=== PATIENT | female | born 2000 | race American Indian/Alaskan Native ===

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

== ENCOUNTER 2018-02-27 13:37 | Emergency (ER) | payer MEDICAID, OTHER ==
[2018-02-27 13:59] VITALS: BP 127/82
--- NOTE | 2018-02-27 14:05 | EDM.PDOC ---
ED HPI GENERAL MEDICAL PROBLEM - General Chief Complaint: ENT Problem Stated Complaint: FOOD STUCK IN THROAT. [phone] Time Seen by Provider: 02/27/18 14:05 Source of Information: Reports: Patient, RN, RN Notes Reviewed History Limitations: Reports: No Limitations - History of Present Illness INITIAL COMMENTS - FREE TEXT/NARRATIVE: Pt c/o sore throat, but states she isn't sure if she is sick, or if it from food that got stuck while eating dinner last evening. Admits to mild fever/ chills but hasn't measured her temp. She denies cough, N/V, abdominal pain or other Sx's. Pt states she is 17+ wks with twin. She denies any Sx's or concerns with the in relation to this visit. 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: Psychiatric History: Reports: Depression, Suicide Attempt Hematologic History: Reports: Anemia Dermatologic History: Reports: Other (See Below) Other Dermatologic History: tatoos - Infectious Disease History Infectious Disease History: Reports: Chicken Pox - Past Surgical History HEENT Surgical History: Reports: Adenoidectomy, Tonsillectomy GI Surgical History: Reports: Cholecystectomy Social & Family History - Family History Family Medical History: Noncontributory - Caffeine Use Caffeine Use: Reports: Soda, Tea - Living Situation & Occupation Living situation: Reports: with Family Occupation: Student ED ROS ENT - Review of Systems Review Of Systems: ROS reveals no pertinent complaints other than HPI. ED EXAM, ENT - Physical Exam Exam: See Below Exam Limited By: No Limitations General Appearance: Alert, WD/WN, No Apparent Distress Eye Exam: Bilateral Eye: Normal Inspection Ears: Normal External Exam, Normal Canal, Hearing Grossly Normal, Normal TMs Nose: Normal Inspection, Normal Mucousa, No Blood Mouth/Throat: Normal Gums, Normal Lips, Normal Teeth, Pharyngeal Erythema (mild) Head: Atraumatic, Normocephalic Neck: Normal Inspection, Supple, Non-Tender, Full Range of Motion. No: Lymphadenopathy (L), Lymphadenopathy (R) Respiratory/Chest: No Respiratory Distress, Lungs Clear, Normal Breath Sounds, No Accessory Muscle Use, Chest Non-Tender Cardiovascular: Normal Peripheral Pulses, Regular Rate, Rhythm, No Edema, No Gallop, No JVD, No Murmur, No Rub GI/Abdominal: Normal Bowel Sounds, Soft, Non-Tender, No Distention, Other ( benign gravid abdomen) (Female) Exam: Deferred Rectal (Female) Exam: Deferred Back: Normal Inspection. No: CVA Tenderness (L), CVA Tenderness (R) Extremities: Normal Inspection, Normal Range of Motion, Non-Tender, No Pedal Edema, Normal Capillary Refill Neurological: Alert, Oriented, CN II-XII Intact, Normal Cognition, Normal Gait, No Motor/Sensory Deficits Psychiatric: Normal Affect, Normal Mood Skin: Warm, Dry, Intact, Normal Color, No Rash Course - Vital Signs Last Recorded V/S: Last Vital Signs Temp 36.6 C 02/27/18 13:57 Pulse 78 02/27/18 13:57 Resp 16 02/27/18 13:57 BP 127/82 02/27/18 13:57 Pulse Ox 96 02/27/18 13:57 heart tones: 183 on twin 1, and 186 on twin 2 by doppler per RN report. - Orders/Labs/Meds Orders: Active Orders 24 hr Category Date Time Status Heart Tones [RC] ASDIRECTED Care 02/27/18 14:26 Active Labs: Laboratory Tests 02/27/18 02/27/18 Range/Units 14:39 14:39 WBC 13.9 H (5.0-10.0) 10^3/uL RBC 4.33 (4.2-5.4) 10^6/uL Hgb 12.9 D (12.0-16.0) g/dL Hct 37.9 (37.0-47.0) % MCV 87.5 (80-100) fL MCH 29.8 (27.0-34.0) pg MCHC 34.0 (33.0-35.0) g/dL Plt Count 321 D (150-450) 10^3/uL Neut % (Auto) 78.6 H (42.2-75.2) % Lymph % (Auto) 14.8 L (20.5-50.1) % [place] % (Auto) 4.8 (2-8) % Eos % (Auto) 1.6 (1.0-3.0) % Baso % (Auto) 0.2 (0.0-1.0) % Sodium 133 L (135-145) mmol/L Potassium 3.8 (3.6-5.0) mmol/L Chloride 103 (101-111) mmol/L Carbon Dioxide 21.0 (21.0-31.0) mmol/L Anion Gap 12.8 BUN 7 (7-18) mg/dL Creatinine 0.5 L (0.6-1.3) mg/dL Est Cr Clr Drug Dosing 182.56 mL/min Estimated GFR (MDRD) > 60 BUN/Creatinine Ratio 14.00 Glucose 75 (74-105) mg/dL Calcium 9.1 (8.4-10.2) mg/dl Total Bilirubin 0.5 (0.2-1.0) mg/dL AST 17 (10-42) IU/L ALT 18 (10-60) IU/L Alkaline Phosphatase 100 (42-121) IU/L Total Protein 6.9 (6.7-8.2) g/dl Albumin 3.1 L (3.2-5.5) g/dl Globulin 3.8 Albumin/Globulin Ratio 0.82 Amylase 42 (28-100) U/L Lipase 20 L (22-51) U/L - Re-Assessments/Exams Free Text/Narrative Re-Assessment/Exam: I consulted Dr. Jaylen Quijano regarding the pt's case, and she agrees with the evaluation and tx thus far, and will ensure the pt can be seen in clinic in the next 1 to 2 days for recheck. Departure - Departure Time of Disposition: 15:39 Disposition: Home, Self-Care 01 Condition: Good Clinical Impression: Esophagitis Esophagus, foreign body Qualifiers: Encounter type: initial encounter Qualified Code(s): T18.108A - Unspecified foreign body in esophagus causing other injury, initial encounter - Discharge Information Instructions: Esophagitis Referrals: Arleth Mata MD [Primary Care Provider] - Forms: ED Department Discharge Additional Instructions: Rx: Ranitidine 150mg Avoid soda/carbonated beverages, spicy foods, and fried/greasy foods. Follow up in clinic with Dr. Mata for recheck. - My Orders Last 24 Hours: My Active Orders 02/27/18 14:26 Heart Tones [RC] ASDIRECTED - Assessment/Plan Last 24 Hours: My Active Orders 02/27/18 14:26 Heart Tones [RC] ASDIRECTED
[2018-02-27 15:15] LABS: CHLORIDE,CL 103 mmol/L (101-111); SODIUM,NA 133 mmol/L (135-145)
== END 2018-02-27 15:51 | disposition home or self-care (01) ==
LOC: DL.ED 13:37
DX: O9A.212 Injury, poisoning and certain other consequences of external causes complicating pregnancy, second trimester (principal); T18.108A Unspecified foreign body in esophagus causing other injury, initial encounter; O99.612 Diseases of the digestive system complicating pregnancy, second trimester; K20.9 Esophagitis, unspecified; O30.002 Twin pregnancy, unspecified number of placenta and unspecified number of amniotic sacs, second trimester; Z3A.17 17 weeks gestation of pregnancy
CPT/HCPCS: 36415; 80053; 82150; 83690; 85025; 87081; 87430; 99283

== ENCOUNTER 2018-06-07 15:33 | Observation (INO) | payer MEDICAID ==
[2018-06-07] MEDS ORDERED: Betamethasone Acetate/Betamethasone Sod Phosphate 30 MG/5 ML MDV IM ONE (15:57)
[2018-06-07] MEDS: Acetaminophen 325 MG Tab PO PRN (17:34)
[2018-06-08] MEDS: Acetaminophen 325 MG Tab PO PRN ×2 (03:10→11:27)
[2018-06-08] MEDS: Calcium Carbonate 500 MG Tab.Chew PO PRN ×2 (03:40→11:16)
--- NOTE | 2018-06-08 13:22 | PCM.LDHP ---
L&D History of Present Illness - General Date of Service: 06/07/18 Admit Problem/Dx: Patient Status Order with Admit Dx/Problem 06/07/18 16:00 Admission Status [Patient Status] [ADT] Routine Admission Diagnosis/Problem Admission Diagnosis/Problem Twin Source of Information: Patient History Limitations: Reports: No Limitations - History of Present Illness Introduction:: 18-year-old at 32w0d transferred to L&D for monitoring. Patient is currently with dichorionic diamniotic twins. She has been following with [facility] for discordant growth. Last ultrasound of the twins 15% difference. Patient has a history of gestational hypertension with her last . She was seen in labor and delivery 5 days ago for lower uterine pain. That time, her blood pressures were normal. She was diagnosed with a urinary tract infection and was treated. Patient states that since that time, she has not been feeling well. She has a headache most days of the week and has a lot of lower pelvic, pubic, and vaginal pain. She denies a contractions. Babies are moving. On arrival at the clinic, patient's blood pressures were initially 138/98 and 140/98. After patient had sat for about 15 minutes, her blood pressure was 130/ 88. Given her history of gestational hypertension, -induced hypertension labs were ordered. Results were as follows: Hemoglobin 10.8 Platelets 311 AST 12 ALT 15 BUN 6 Creatinine 0.8 LDH 163 Uric acid 4.3 PCR 0.2 Pain Score: 7 - Related Data Allergies/Adverse Reactions: Allergies Allergy/AdvReac Type Severity Reaction Status Date / Time No Known Allergies Allergy Verified 06/01/18 23:44 Home Medications: Home Meds Acetaminophen [Tylenol] 650 mg PO Q6H PRN #0 tablet 12/26/16 [Rx] Vit37/Iron/Folic Acid [Prenata] 1 tab PO DAILY 02/27/18 [History] Past Medical History - Past Health History Medical/Surgical History: Denies Medical/Surgical History HEENT History: Reports: Impaired Vision Cardiovascular History: Reports: None Respiratory History: Reports: None Other Respiratory History: hx influenza a Gastrointestinal History: Reports: None Genitourinary History: Reports: None 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: , Other (See Below) Other OB/BYN History: current twin gestation Musculoskeletal History: Reports: None Neurological History: Reports: None Psychiatric History: Reports: Depression, Suicide Attempt Endocrine/Metabolic History: Reports: Diabetes, Gestational Hematologic History: Reports: Anemia Immunologic History: Reports: None Oncologic (Cancer) History: Reports: None Dermatologic History: Reports: None, Other (See Below) Other Dermatologic History: tattoos, 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 - Infectious Disease History Infectious Disease History: Reports: Influenza - Past Surgical History Head Surgeries/Procedures: Reports: None HEENT Surgical History: Reports: Adenoidectomy, Tonsillectomy GI Surgical History: Reports: Cholecystectomy Female Surgical History: Reports: Section Social & Family History - Family History Family Medical History: Noncontributory - Tobacco Use Smoking Status *Q: Current Every Day Smoker Years of Tobacco use: 5 Packs/Tins Daily: 0.5 Used Tobacco, but Quit: No - Caffeine Use Caffeine Use: Reports: Soda - Recreational Drug Use Recreational Drug Use: No - Living Situation & Occupation Living situation: Reports: with Family Occupation: Student H&P Review of Systems - Review of Systems: Review Of Systems: See Below General: Reports: Fatigue HEENT: Reports: Headaches Pulmonary: Reports: No Symptoms Cardiovascular: Reports: No Symptoms Gastrointestinal: Reports: Abdominal Pain Genitourinary: Reports: Other (Pelvic pain) Musculoskeletal: Reports: No Symptoms Skin: Reports: No Symptoms L&D Exam - Exam Exam: See Below - Vital Signs Vital Signs: Last Vital Signs Temp 36.8 C 06/08/18 12:00 Pulse 104 H 06/08/18 12:00 Resp 16 06/08/18 12:00 BP 110/74 06/08/18 12:00 Pulse Ox 99 06/08/18 12:00 Weight: 109.769 kg - OB Specific Contraction Duration (sec): 10-40 Contraction Frequency (min): 0 Contraction Intensity: Mild Movement: Active Heart Tones: Present Heart Rate (FHR) Variability: Moderate (6-25 bmp) - Exam General: Alert, Oriented Lungs: Clear to Auscultation, Normal Respiratory Effort Cardiovascular: Regular Rate, Regular Rhythm. No: Systolic Murmur, Diastolic Murmur Extremities: No Pedal Edema Skin: Warm, Dry, Intact - Patient Data Lab Results Last 24 hrs: Laboratory Results - last 24 hr 06/07/18 Range/Units 19:59 POC Glucose 150 H (70-105) mg/dl - Problem List (1) Dichorionic diamniotic twin gestation SNOMED Code(s): 021153650 ICD Code: O30.049 - TWIN , DICHORIONIC/DIAMNIOTIC, UNSP TRIMESTER Status: Acute Current Visit: Yes (2) Gestational diabetes SNOMED Code(s): 20640796 ICD Code: O24.419 - GESTATIONAL DIABETES MELLITUS IN , UNSP CONTROL Status: Acute Current Visit: Yes (3) Gestational hypertension SNOMED Code(s): 320308911, 421263304 ICD Code: O13.9 - GESTATIONAL HTN W/O SIGNIFICANT PROTEINURIA, UNSP TRIMESTER Status: Acute Current Visit: Yes (4) History of delivery SNOMED Code(s): 060295396 ICD Code: Z98.891 - HISTORY OF UTERINE SCAR FROM PREVIOUS SURGERY Status: Acute Current Visit: Yes Problem List Initiated/Reviewed/Updated: Yes Orders Last 24hrs: Active Orders 24 hr Category Date Time Status Admission Status [Patient Status] [ADT] Routine ADT 06/07/18 16:00 Active NST [ Non Stress Test] [RC] QSHIFT Care 06/07/18 15:59 Active Vital Signs [RC] Q4HR Care 06/07/18 16:00 Active Regular Diet [DIET] Diet 06/07/18 Dinner Active PROTEIN,URINE 24HR [URCHEM] Routine Lab 06/07/18 16:10 Ordered PROTEIN/CREATININE RATIO URINE Routine Lab 06/07/18 16:10 Ordered Acetaminophen [Tylenol] Med 06/07/18 16:45 Active 650 mg PO Q6H PRN Acetaminophen/Codeine [Tylenol with Codeine No.3 300MG/ Med 06/08/18 12:56 Once 30MG] 1 tab PO ONETIME ONE Betamet Acet/Betamet Na Phos [Celestone Soluspan 6 MG/ Med 06/08/18 16:03 Once ML] 12 mg IM ONETIME ONE Calcium Carbonate [Tums] Med 06/08/18 03:06 Active 1,000 mg PO Q2H PRN Medication Orders Acetaminophen (Tylenol) 650 mg PO Q6H PRN PRN Reason: Pain Last Admin: 06/08/18 11:27 Dose: 650 mg Admin: 06/08/18 03:10 Dose: 650 mg Admin: 06/07/18 17:34 Dose: 650 mg Acetaminophen/Codeine Phosphate (Tylenol With Codeine No.3 300mg/30mg) 1 tab PO ONETIME ONE Stop: 06/08/18 12:57 Betamethasone Acet/Betameth SodPhos (Celestone Soluspan 6 Mg/Ml) 12 mg IM ONETIME ONE Stop: 06/08/18 16:04 Calcium Carbonate/Glycine (Tums) 1,000 mg PO Q2H PRN PRN Reason: Heartburn Last Admin: 06/08/18 11:16 Dose: 1,000 mg Admin: 06/08/18 03:40 Dose: 1,000 mg Assessment/Plan Comment:: 18-year-old at 32w0d, di-di twin and newly diagnosed gestational hypertension 1. Admit patient for 24 hours of observation. 2. Betamethasone 2 doses 24 hours prior. 3. Obtain 24-hour urine protein. 4. NST per shift 5. Anticipate discharge tomorrow. Arleth Mata MD
--- NOTE | 2018-06-08 13:32 | PCM.DCSUM1 ---
Discharge Summary - Hospital Course Free Text/Narrative:: 18-year-old at 32w1d gestation with di-di twins, gestational diabetes and new diagnosis of gestational hypertension, admitted for observation and monitoring of elevated BPs Diagnosis: Stroke: No - Discharge Data Discharge Date: 06/08/18 Discharge Disposition: Home, Self-Care 01 Condition: Good - Discharge Diagnosis/Problem(s) (1) Dichorionic diamniotic twin gestation SNOMED Code(s): 254136972 ICD Code: O30.049 - TWIN , DICHORIONIC/DIAMNIOTIC, UNSP TRIMESTER Status: Acute Current Visit: Yes (2) Gestational diabetes SNOMED Code(s): 77521764 ICD Code: O24.419 - GESTATIONAL DIABETES MELLITUS IN , UNSP CONTROL Status: Acute Current Visit: Yes (3) Gestational hypertension SNOMED Code(s): 272159640, 928899956 ICD Code: O13.9 - GESTATIONAL HTN W/O SIGNIFICANT PROTEINURIA, UNSP TRIMESTER Status: Acute Current Visit: Yes (4) History of delivery SNOMED Code(s): 079312416 ICD Code: Z98.891 - HISTORY OF UTERINE SCAR FROM PREVIOUS SURGERY Status: Acute Current Visit: Yes - Patient Summary/Data Consults: Dr. Kruse, CHORAL DIRECTOR - Patient Instructions Diet: Diabetic Diet Activity: As Tolerated Driving: May Drive Today Showering/Bathing: May Shower Notify Provider of: Increased Pain, Nausea and/or Vomiting - Discharge Plan *PRESCRIPTION DRUG MONITORING PROGRAM REVIEWED*: Not Applicable *COPY OF PRESCRIPTION DRUG MONITORING REPORT IN PATIENT SURI: Not Applicable Home Medications: Home Meds Acetaminophen [Tylenol] 650 mg PO Q6H PRN #0 tablet 12/26/16 [Rx] Vit37/Iron/Folic Acid [Prenata] 1 tab PO DAILY 02/27/18 [History] - Discharge Summary/Plan Comment DC Time >30 min.: No Discharge Summary/Plan Comment: As patient's blood pressures have improved today, we'll plan for discharge is afternoon pending her 24-hour urine protein. She will also receive her second dose of betamethasone prior to discharge. Because of her continued complaints of increased pain, I have asked Dr. Kruse, CHORAL DIRECTOR, to see the patient and see if he has any further recommendations. Patient will be given a one-time dose of Tylenol with Codeine to see if this helps her headaches area Patient has follow-up with me next week for an appointment, and ST, and ultrasound. Patient was advised to keep these appointments as scheduled. - General Info Date of Service: 06/08/18 Subjective Update: Patient still complains of a headache today. She states that the Tylenol helps some but the headache comes back. She also complains of lower pelvic and vaginal pain. No dizziness or lightheadedness. No abdominal pain. Blood pressures have been improved over the past 24 hours. Functional Status: Reports: Tolerating Diet, Ambulating, Urinating. Denies: New Symptoms - Review of Systems General: Reports: No Symptoms HEENT: Reports: Headaches Pulmonary: Reports: No Symptoms Cardiovascular: Reports: No Symptoms Gastrointestinal: Reports: Abdominal Pain Genitourinary: Reports: Other (Pelvic/vaginal pain) Musculoskeletal: Reports: No Symptoms Skin: Reports: No Symptoms Neurological: Reports: No Symptoms - Patient Data Vitals - Most Recent: Last Vital Signs Temp 36.8 C 06/08/18 12:00 Pulse 104 H 06/08/18 12:00 Resp 16 06/08/18 12:00 BP 110/74 06/08/18 12:00 Pulse Ox 99 06/08/18 12:00 Weight - Most Recent: 109.769 kg I&O - Last 24 hours: Intake & Output 06/07/18 06/08/18 06/08/18 22:59 06:59 14:59 Output Total 400 Balance -400 Lab Results - Last 24 hrs: Laboratory Results - last 24 hr 06/07/18 Range/Units 19:59 POC Glucose 150 H (70-105) mg/dl Med Orders - Current: Current Medications Acetaminophen (Tylenol) 650 mg PO Q6H PRN PRN Reason: Pain Last Admin: 06/08/18 11:27 Dose: 650 mg Acetaminophen/Codeine Phosphate (Tylenol With Codeine No.3 300mg/30mg) 1 tab PO ONETIME ONE Stop: 06/08/18 12:57 Betamethasone Acet/Betameth SodPhos (Celestone Soluspan 6 Mg/Ml) 12 mg IM ONETIME ONE Stop: 06/08/18 16:04 Calcium Carbonate/Glycine (Tums) 1,000 mg PO Q2H PRN PRN Reason: Heartburn Last Admin: 06/08/18 11:16 Dose: 1,000 mg Discontinued Medications Betamethasone Acet/Betameth SodPhos (Celestone Soluspan 6 Mg/Ml) 12 mg IM ONETIME ONE Stop: 06/07/18 15:58 Last Admin: 06/07/18 16:41 Dose: 12 mg - Exam General: Reports: Alert, Oriented Lungs: Reports: Clear to Auscultation, Normal Respiratory Effort Cardiovascular: Reports: Regular Rate, Regular Rhythm, No Murmurs Extremities: No Pedal Edema Skin: Reports: Warm, Dry, Intact
[2018-06-08] MEDS ORDERED: Acetaminophen/Codeine 300-30 MG Tab PO ONE (14:15)
[2018-06-08] MEDS ORDERED: Betamethasone Acetate/Betamethasone Sod Phosphate 30 MG/5 ML MDV IM ONE (16:03)
[2018-06-08 16:57] VITALS: BP 109/55
--- NOTE | 2018-06-11 10:20 | CONS ---
SERVICE DATE: 06/08/2018 CHIEF COMPLAINT: Elevated blood pressure with headache on admission. HISTORY OF PRESENT ILLNESS: Ms. Silva is a 18-year-old 2, para 1-0-0- 1 female who reported to Labor and Delivery at 32 weeks gestation because of the patient's blood pressures in the 130s to 140s over high 90s. She also complained of a headache and lower uterine pain. Last menstrual period 10/08/2017, EDC 08/02/2018, by a 6-week ultrasound. She has twin gestation, dichorionic/diamniotic male twins. She was diagnosed with gestational diabetes along with having gestational hypertension. She did have a 24-hour urine accomplished and was watched overnight. She was given betamethasone 12 mg IM x2 doses. Her protein creatinine ratio was 0.17. Her total protein for 24 hours was 236 mg per 24 hours. Her blood pressures improved tremendously when they were down in the teens over 70s. She has no scotomata, epigastric pain, blurred vision. The headache that she came in with has improved some, but she has had headaches throughout the for long periods of time. She has no nausea, vomiting, or diarrhea. No fever or chills. No hematochezia, hematemesis, or hematuria. No dysuria, frequency, or urgency with urination. No leg pain, leg edema, or back pain. PAST MEDICAL HISTORY: No history of asthma, previous hypertension, diabetes outside of , heart problems, lung problems, seizure disorder, thyroid disorder, or blood transfusions. She does have history of depression, gestational diabetes, and gestational hypertension. 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 FAMILY HISTORY: Positive for diabetes, hypertension, rheumatoid arthritis, osteoarthritis, [place], seizure disorder, and bipolar disorder. PAST SURGICAL HISTORY: Cholecystectomy, tonsillectomy, and adenoidectomy. SOCIAL HISTORY: She denies any tobacco use, alcohol use, or illicit drug use. She is single. She is a student. MEDICATIONS: 1. Tylenol. 2. vitamins. 3. Benadryl p.r.n. OBSTETRICAL HISTORY: On 12/23/2016, delivery of a viable male infant weighing 3160 g at 30 and 3/7 weeks gestation via primary section. This was for intolerance to labor with small placental abruption. She did have gestational hypertension. LABORATORY DATA: Blood type A positive, antibody screen negative, rubella immune, RPR nonreactive, hepatitis B surface antigen negative, hepatitis C negative, HIV nonreactive. REVIEW OF SYSTEMS: All pertinent positive and negative review of systems per HPI. All other systems reviewed are negative. A 10-point review of systems discussed with the patient. Other than what was in the HPI, she has no issues. OBJECTIVE: General: Well-developed, well-nourished female in no acute distress. Vital Signs: Stable. Afebrile. Blood pressure 109/55, her pulse was 82, respirations 18. HEENT: Unremarkable. PERRLA. Neck: Supple without adenopathy. No nuchal rigidity. Lungs: Clear to auscultation. No wheezing, rhonchi, or rales noted. Cardiovascular: Regular rate and rhythm without murmurs. Abdomen: Gravid, nontender. Bowel sounds good. No rigidity, rebound tenderness, or peritoneal signs noted. Fundal height 36 cm. heart tones in the 130s to 140s in both fetuses. No contractions. Extremities: No edema, erythema, or tenderness noted. DTRs 2+/4 in all areas. No clonus. ASSESSMENT: 1. 32 and 1/7 week intrauterine . 2. Twin gestation. 3. Dichorionic/diamniotic twin boys. 4. Gestational diabetes, diet controlled. 5. Gestational hypertension that was labile, that has improved. 6. Chronic headache. 7. Preeclamptic labs were negative. PLAN: 1. The patient to follow next week with Dr. Mata. 2. NSTs and biophysical profiles weekly. 3. Continue watching blood pressures and sugars closely. 4. Patient is being delivered at this time at 37 weeks gestation unless preeclampsia with severe features occur sooner. 5. I do not think anything needs to change at this point unless she starts having preeclampsia with severe features or we are seeing growth issues with the fetus that are detrimental. 6. Continue present care with Dr. Mata and also with [facility] in [place]. 7. All questions were answered. They understand why they need to come back for evaluation or talk with her primary provider sooner. 8. We will continue doing kick counts. 9. They understand that discomfort in the abdomen can be normal, but if things become worse or she starts bleeding, leaking fluid, tank regularly more than 5 an hour, she needs to be evaluated. [facility] /[id number]
== END 2018-06-08 18:30 | disposition home or self-care (01) ==
LOC: DL.OBCHECK 15:33 → DL.OB 16:00
PROVIDERS: ADMIT Family Medicine; ATTEND Family Medicine
DX: O13.3 Gestational [pregnancy-induced] hypertension without significant proteinuria, third trimester (principal); O24.410 Gestational diabetes mellitus in pregnancy, diet controlled; O26.893 Other specified pregnancy related conditions, third trimester; R51 Headache; O99.333 Smoking (tobacco) complicating pregnancy, third trimester; F17.210 Nicotine dependence, cigarettes, uncomplicated; O99.343 Other mental disorders complicating pregnancy, third trimester; F32.9 Major depressive disorder, single episode, unspecified; O30.043 Twin pregnancy, dichorionic/diamniotic, third trimester; Z3A.32 32 weeks gestation of pregnancy; Z98.891 History of uterine scar from previous surgery
CPT/HCPCS: 59025; 82570; 82962; 84156; 96372; A9270; G0378; J0702

== ENCOUNTER 2020-05-26 22:28 | Emergency (ER) | payer MEDICAID ==
[2020-05-26 22:50] VITALS: PULSE 100
--- NOTE | 2020-05-26 23:01 | EDM.PDOC ---
ED HPI GENERAL MEDICAL PROBLEM - General Chief Complaint: Neck Problem Stated Complaint: RAYSA HYMAN SAYS,HAS,[id number] Time Seen by Provider: 05/26/20 22:50 Source of Information: Reports: Patient History Limitations: Reports: No Limitations - History of Present Illness INITIAL COMMENTS - FREE TEXT/NARRATIVE: This 20 yo female patient reports to the ED with upper back pain that radiates to her neck. The patient reports she has been looking up her symptoms and found that her symptoms match with West Nile. The patient reports she was bitten by a mosquito about 6 days ago and started to have symptoms 3 days ago. The patient reports she has not attempted to be seen in the clinic as her primary care facility is in [place]. The patient also reports she has twins and this may be some knot in her muscles causing her symptoms. Duration: Day(s): (3), Constant, Getting Worse Location: Reports: Neck (posterior neck), Back (upper back) Quality: Reports: Ache, Dull Severity: Moderate Improves with: Reports: None Worsens with: Reports: None Context: Reports: Other Associated Symptoms: Reports: No Other Symptoms Neck Pain Score (Numeric/FACES): 5 - Related Data Allergies Allergy/AdvReac Type Severity Reaction Status Date / Time No Known Allergies Allergy Verified 05/26/20 22:47 Home Meds: Home Meds levonorgestreL [Mirena] 1 each IY ASDIRECTED 05/26/20 [History] Past Medical History - Past Health History Medical/Surgical History: Denies Medical/Surgical History HEENT History: Reports: Impaired Vision Cardiovascular History: Reports: Hypertension, Other (See Below) Other Cardiovascular History: hx induced hypertension Respiratory History: Reports: None Other Respiratory History: SOB when at 45 degree or lower level Gastrointestinal History: Reports: None Genitourinary History: Reports: None CAREER PROFESSIONAL History: Reports: Other CAREER PROFESSIONAL History: current twin gestation Musculoskeletal History: Reports: None Neurological History: Reports: None Psychiatric History: Reports: Depression, Suicide Attempt Endocrine/Metabolic History: Reports: Diabetes, Gestational Hematologic History: Reports: Anemia Immunologic History: Reports: None Oncologic (Cancer) History: Reports: None Dermatologic History: Reports: None, Other (See Below) Other Dermatologic History: tattoos, 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 - Infectious Disease History Infectious Disease History: Reports: None - Past Surgical History Head Surgeries/Procedures: Reports: None HEENT Surgical History: Reports: Adenoidectomy, Tonsillectomy Cardiovascular Surgical History: Reports: None GI Surgical History: Reports: Cholecystectomy Female Surgical History: Reports: Section Social & Family History - Family History Family Medical History: Noncontributory - Tobacco Use Smoking Status *Q: Current Every Day Smoker Years of Tobacco use: 3 Packs/Tins Daily: 0.2 Used Tobacco, but Quit: No Second Hand Smoke Exposure: Yes - Caffeine Use Caffeine Use: Reports: Soda - Recreational Drug Use Recreational Drug Use: No - Living Situation & Occupation Living situation: Reports: with Family Occupation: Student ED ROS GENERAL - Review of Systems Review Of Systems: Comprehensive ROS is negative, except as noted in HPI. ED EXAM, UPPER BACK/NECK PAIN - Physical Exam Exam: See Below Exam Limited By: No Limitations General Appearance: Alert, WD/WN, No Apparent Distress Eye Exam: Bilateral Eye: EOMI, Normal Inspection, PERRL Ears Exam: Normal External Exam, Normal Canal, Hearing Grossly Normal, Normal TMs Nose Exam: Normal Inspection, Normal Mucousa, No Blood Throat/Mouth Exam: Normal Inspection, Normal Lips, Normal Teeth, Normal Gums, Normal Oropharynx, Normal Voice, No Airway Compromise Head Exam: Atraumatic, Normocephalic Neck Exam: Full Range of Motion, Normal Alignment, Normal Inspection, Paraspinous Muscle Tender Nexus Criteria: No: Posterior, Midline Cervical Tenderness, Evidence of Intoxication, Altered Level of Consciousness, Focal Neurological Deficit, Painful Distraction Injuries Cardiovascular/Respiratory: Regular Rate, Rhythm, No M/R/G, Normal Peripheral Pulses, No JVD, Normal Breath Sounds, No Respiratory Distress GI/Abdominal: Normal Bowel Sounds, Soft, Non-Tender, No Organomegaly, No Distention, No Abnormal Bruit, No Mass (Female) Exam: Deferred Rectal (Female) Exam: Deferred Back Exam: Paraspinal Tenderness (upper back to lower neck) Extremities: Normal Inspection, Normal Range of Motion, Non-Tender, No Pedal Edema, Normal Capillary Refill Neurologic: legal financial specialist II-XII nml As Tested, No Motor/Sensory Deficits, Alert, Normal Mood/Affect, Oriented x 3 Psychiatric: Normal Affect, Normal Mood Skin Exam: Normal Color, Warm/Dry Lymphatic: No Adenopathy Course - Vital Signs Last Recorded V/S: Last Vital Signs Temp 36.8 C 05/26/20 22:49 Pulse 100 05/26/20 22:49 Resp 18 05/26/20 22:49 BP 165/113 H 05/26/20 22:49 Pulse Ox 100 05/26/20 22:49 - Orders/Labs/Meds Orders: Active Orders 24 hr Category Date Time Status [facility] [facility] [REF] Urgent Lab 05/26/20 22:52 Ordered Departure - Departure Time of Disposition: 23:14 Disposition: Home, Self-Care 01 Condition: Fair Clinical Impression: Upper back pain, Neck pain - Discharge Information *PRESCRIPTION DRUG MONITORING PROGRAM REVIEWED*: Not Applicable *COPY OF PRESCRIPTION DRUG MONITORING REPORT IN PATIENT SURI: Not Applicable Forms: ED Department Discharge Care Plan Goals: The patient was advised of the examination results during the visit. A lab sample was taken during the visit to be sent off to the State lab for analysis looking into the possibility of [place] Nile virus. The patient will be notified of the results when available. The patient was encouraged to do some stretching exercises. The patient may also take Tylenol or ibuprofen as directed. If the patient has any additional symptoms or concerns, the patient should either visit her primary care facility or return to the emergency department. Sepsis Event Note (ED) - Evaluation Sepsis Screening Result: No Definite Risk - Focused Exam Vital Signs: Vital Signs Temp Pulse Resp BP Pulse Ox 05/26/20 22:49 36.8 C 100 18 165/113 H 100 - My Orders Last 24 Hours: My Active Orders 05/26/20 22:52 [facility] [REF] Urgent - Assessment/Plan Last 24 Hours: My Active Orders 05/26/20 22:52 [facility] [REF] Urgent
[2020-05-26 23:17] VITALS: BP 149/99
== END 2020-05-26 23:21 | disposition home or self-care (01) ==
LOC: DL.ED 22:28
DX: M54.6 Pain in thoracic spine (principal); M54.2 Cervicalgia; I10 Essential (primary) hypertension; F17.210 Nicotine dependence, cigarettes, uncomplicated; Z98.890 Other specified postprocedural states
CPT/HCPCS: 86788; 99283

== ENCOUNTER 2021-06-10 19:48 | Emergency (ER) | payer MEDICAID ==
[2021-06-10] MEDS ORDERED: Sodium Chloride 0.9% 10 ML Syringe FLUSH PRN (20:06)
[2021-06-10] MEDS ORDERED: Lactated Ringers 1,000 ML IV ONE ×2 (20:06→21:18)
[2021-06-10] MEDS ORDERED: diphenhydrAMINE 50 MG/ML SDV IVPUSH ONE (20:06)
[2021-06-10] MEDS ORDERED: cefTRIAXone 1 GM in Sodium Chloride 0.9% 50 ML IV ONE (20:20)
[2021-06-10] MEDS ORDERED: Ketorolac 30 MG/ML SDV IVPUSH ONE (20:20)
--- NOTE | 2021-06-10 20:29 | EDM.PDOC ---
ED HPI GENERAL MEDICAL PROBLEM - General Chief Complaint: Genitourinary Problem Stated Complaint: UTI PER PT Time Seen by Provider: 06/10/21 20:15 Source of Information: Reports: Patient History Limitations: Reports: No Limitations - History of Present Illness INITIAL COMMENTS - FREE TEXT/NARRATIVE: Patient comes emergency department today from home with concerns of a urinary t ract infection. She relates over the past 2 days that she has urinary frequency urgency as well as dysuria. She has also developed some pain in the right flank region that is just a constant ache in the right flank. She has had chills but no fever. Nausea without vomiting. No chest pain or shortness of breath or difficulty breathing. No palpitations lightheadedness weakness dizziness or syncope. No abdominal pain. No vaginal discharge drainage or dyspareunia or foul smells. No black tarry stools or constipation. She has had about 5 urinary tract infections in the last year. She is typically placed on Pyridium as well as Macrobid. She also gets recurrent yeast infections. Bilateral Flank Pain Score (Numeric/FACES): 8 - Related Data Allergies Allergy/AdvReac Type Severity Reaction Status Date / Time No Known Allergies Allergy Verified 06/10/21 20:14 Home Meds: Home Meds levonorgestreL [Mirena] 1 each IY ASDIRECTED 05/26/20 [History] Past Medical History - Past Health History Medical/Surgical History: Denies Medical/Surgical History HEENT History: Reports: Impaired Vision Cardiovascular History: Reports: Hypertension, Other (See Below) Other Cardiovascular History: hx induced hypertension Respiratory History: Reports: None Other Respiratory History: SOB when at 45 degree or lower level Gastrointestinal History: Reports: None Genitourinary History: Reports: None 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 Musculoskeletal History: Reports: None Neurological History: Reports: None Psychiatric History: Reports: Depression, Suicide Attempt Endocrine/Metabolic History: Reports: Diabetes, Gestational Hematologic History: Reports: Anemia Immunologic History: Reports: None Oncologic (Cancer) History: Reports: None Dermatologic History: Reports: Other (See Below) Other Dermatologic History: 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 - Infectious Disease History Infectious Disease History: Reports: None - Past Surgical History Head Surgeries/Procedures: Reports: None HEENT Surgical History: Reports: Adenoidectomy, Tonsillectomy Other HEENT Surgeries/Procedures: headache Cardiovascular Surgical History: Reports: None GI Surgical History: Reports: Cholecystectomy Female Surgical History: Reports: Section Social & Family History - Family History Family Medical History: No Pertinent Family History - Tobacco Use Tobacco Use Status *Q: Current Every Day Tobacco User Years of Tobacco use: 2 Packs/Tins Daily: 0.5 - Caffeine Use Caffeine Use: Reports: Soda - Recreational Drug Use Recreational Drug Use: No - Living Situation & Occupation Living situation: Reports: with Family Occupation: Student ED ROS GENERAL - Review of Systems Review Of Systems: Comprehensive ROS is negative, except as noted in HPI. ED EXAM, GI/ABD - Physical Exam Exam: See Below Exam Limited By: No Limitations General Appearance: Alert, WD/WN, No Apparent Distress Neck: Normal Inspection Respiratory/Chest: No Respiratory Distress, Lungs Clear, Normal Breath Sounds, No Accessory Muscle Use, Chest Non-Tender Cardiovascular: Normal Peripheral Pulses, Regular Rate, Rhythm GI/Abdominal Exam: Normal Bowel Sounds, Soft, Non-Tender (Female) Exam: Deferred Rectal (Female) Exam: Deferred Back Exam: Normal Inspection, Full Range of Motion, CVA Tenderness (R). No: CVA Tenderness (L) Extremities: Normal Inspection, Normal Range of Motion, Non-Tender, No Pedal Edema, Normal Capillary Refill Neurological: Alert, Oriented, Normal Cognition, No Motor/Sensory Deficits Psychiatric: Normal Affect, Normal Mood Skin Exam: Warm, Dry, Intact, Normal Color Course - Vital Signs Last Recorded V/S: Last Vital Signs Temp 98.4 F 06/10/21 20:03 Pulse 116 H 06/10/21 20:03 Resp 16 06/10/21 20:03 BP 152/102 H 06/10/21 20:03 Pulse Ox 98 06/10/21 20:03 - Orders/Labs/Meds Orders: Active Orders 24 hr Category Date Time Status CHLAMYDIA AND GONORRHEA BY TMA Stat Lab 06/10/21 19:55 Received CULTURE URINE [RM] Stat Lab 06/10/21 19:55 Received Peripheral IV Insertion Adult [OM.PC] Stat Oth 06/10/21 20:06 Ordered Labs: Laboratory Tests 06/10/21 06/10/21 06/10/21 Range/Units 19:55 19:55 20:06 WBC (5.0-10.0) 10^3/uL RBC (4.2-5.4) 10^6/uL Hgb (12.0-16.0) g/dL Hct (37.0-47.0) % MCV (80-100) fL MCH (27.0-34.0) pg MCHC (33.0-35.0) g/dL Plt Count (150-450) 10^3/uL Neut % (Auto) (42.2-75.2) % Lymph % (Auto) (20.5-50.1) % [place] % (Auto) (2-8) % Eos % (Auto) (1.0-3.0) % Baso % (Auto) (0.0-1.0) % Sodium (136-145) mmol/L Potassium (3.5-5.1) mmol/L Chloride (98-107) mmol/L Carbon Dioxide (21-32) mmol/L Anion Gap (7-13) mEq/L BUN (7-18) mg/dL Creatinine (0.55-1.02) mg/dL Est Cr Clr Drug Dosing mL/min Estimated GFR (MDRD) BUN/Creatinine Ratio (No establ ref range) Glucose (70-99) mg/dL Lactic Acid (0.4-2.0) mmol/L Calcium (8.5-10.1) mg/dL Total Bilirubin (0.2-1.0) mg/dL AST (15-37) U/L ALT (14-59) U/L Alkaline Phosphatase (46-116) U/L C-Reactive Protein (0.0-0.9) mg/dL Total Protein (6.4-8.2) g/dL Albumin (3.4-5.0) g/dL Globulin Albumin/Globulin Ratio Urine Color Yellow (YELLOW) Urine Appearance Cloudy (CLEAR) Urine pH 6.0 (5.0-9.0) Ur Specific [place] >= 1.030 (1.005-1.030) Urine Protein >=300 H (NEGATIVE) Urine Glucose (UA) Negative (NEGATIVE) Urine Ketones Trace H (NEGATIVE) Urine Occult Blood Large H (NEGATIVE) Urine Nitrite Positive H (NEGATIVE) Urine Bilirubin Small H (NEGATIVE) Urine Urobilinogen 0.2 (0.2-1.0) mg/dL Ur Leukocyte Esterase Small H (NEGATIVE) Urine RBC 0-5 (0-5) /HPF Urine WBC 75-100 H (0-5/HPF) /HPF Ur Epithelial Cells Moderate H (NOT SEEN) /HPF Urine Bacteria Many H (0-FEW/HPF) /HPF Urine Mucus Moderate H (NOT SEEN) /LPF Urine HCG, Qual Negative Urine Opiates Screen Negative (NEGATIVE) Ur Oxycodone Screen Negative (NEGATIVE) Urine Methadone Screen Negative (NEGATIVE) Ur Barbiturates Screen Negative (NEGATIVE) U Tricyclic Antidepress Negative (NEGATIVE) Ur Phencyclidine Scrn Negative (NEGATIVE) Ur Amphetamine Screen Positive H (NEGATIVE) U Methamphetamines Scrn Positive H (NEGATIVE) Urine MDMA Screen Positive H (NEGATIVE) U Benzodiazepines Scrn Negative (NEGATIVE) Urine Cocaine Screen Negative (NEGATIVE) U Marijuana (THC) Screen Positive H (NEGATIVE) 06/10/21 06/10/21 06/10/21 Range/Units 20:10 20:10 20:10 WBC 14.7 H (5.0-10.0) 10^3/uL RBC 5.22 (4.2-5.4) 10^6/uL Hgb 15.7 D (12.0-16.0) g/dL Hct 46.6 (37.0-47.0) % MCV 89.3 D (80-100) fL MCH 30.1 (27.0-34.0) pg MCHC 33.7 (33.0-35.0) g/dL Plt Count 381 D (150-450) 10^3/uL Neut % (Auto) 72.6 (42.2-75.2) % Lymph % (Auto) 20.1 L (20.5-50.1) % [place] % (Auto) 5.2 (2-8) % Eos % (Auto) 1.9 (1.0-3.0) % Baso % (Auto) 0.2 (0.0-1.0) % Sodium 141 (136-145) mmol/L Potassium 3.4 L (3.5-5.1) mmol/L Chloride 103 (98-107) mmol/L Carbon Dioxide 29 (21-32) mmol/L Anion Gap 12.4 (7-13) mEq/L BUN 18 (7-18) mg/dL Creatinine 1.05 H (0.55-1.02) mg/dL Est Cr Clr Drug Dosing 84.06 mL/min Estimated GFR (MDRD) > 60 BUN/Creatinine Ratio 17.1 (No establ ref range) Glucose 89 (70-99) mg/dL Lactic Acid 1.6 (0.4-2.0) mmol/L Calcium 9.4 (8.5-10.1) mg/dL Total Bilirubin 1.1 H (0.2-1.0) mg/dL AST 13 L (15-37) U/L ALT 18 (14-59) U/L Alkaline Phosphatase 99 (46-116) U/L C-Reactive Protein 1.7 H (0.0-0.9) mg/dL Total Protein 8.5 H (6.4-8.2) g/dL Albumin 4.5 (3.4-5.0) g/dL Globulin 4.0 Albumin/Globulin Ratio 1.1 Urine Color (YELLOW) Urine Appearance (CLEAR) Urine pH (5.0-9.0) Ur Specific [place] (1.005-1.030) Urine Protein (NEGATIVE) Urine Glucose (UA) (NEGATIVE) Urine Ketones (NEGATIVE) Urine Occult Blood (NEGATIVE) Urine Nitrite (NEGATIVE) Urine Bilirubin (NEGATIVE) Urine Urobilinogen (0.2-1.0) mg/dL Ur Leukocyte Esterase (NEGATIVE) Urine RBC (0-5) /HPF Urine WBC (0-5/HPF) /HPF Ur Epithelial Cells (NOT SEEN) /HPF Urine Bacteria (0-FEW/HPF) /HPF Urine Mucus (NOT SEEN) /LPF Urine HCG, Qual Urine Opiates Screen (NEGATIVE) Ur Oxycodone Screen (NEGATIVE) Urine Methadone Screen (NEGATIVE) Ur Barbiturates Screen (NEGATIVE) U Tricyclic Antidepress (NEGATIVE) Ur Phencyclidine Scrn (NEGATIVE) Ur Amphetamine Screen (NEGATIVE) U Methamphetamines Scrn (NEGATIVE) Urine MDMA Screen (NEGATIVE) U Benzodiazepines Scrn (NEGATIVE) Urine Cocaine Screen (NEGATIVE) U Marijuana (THC) Screen (NEGATIVE) Meds: Medications Discontinued Medications Generic Name Dose Route Start Last Admin Trade Name Freq PRN Reason Stop Dose Admin Diphenhydramine HCl 25 mg 06/10/21 20:06 06/10/21 20:30 Diphenhydramine 50 Mg/Ml Sdv IVPUSH 06/10/21 20:07 25 mg ONETIME ONE Administration Lactated Ringer's 1,000 mls @ 1,000 mls/hr 06/10/21 20:06 06/10/21 20:30 Ringers, Lactated IV 06/10/21 21:05 1,000 mls/hr .BOLUS ONE Administration Ceftriaxone Sodium 1 gm/ 50 mls @ 100 mls/hr 06/10/21 20:20 06/10/21 20:35 Sodium Chloride IV 06/10/21 20:49 100 mls/hr ONETIME ONE Administration Lactated Ringer's 1,000 mls @ 1,000 mls/hr 06/10/21 21:18 06/10/21 21:55 Ringers, Lactated IV 06/10/21 22:17 1,000 mls/hr .BOLUS ONE Administration Ketorolac Tromethamine 30 mg 06/10/21 20:20 06/10/21 20:30 Ketorolac 30 Mg/Ml Sdv IVPUSH 06/10/21 20:21 30 mg ONETIME ONE Administration Sodium Chloride 10 ml 06/10/21 20:06 06/10/21 20:30 Sodium Chloride 0.9% 10 Ml Syringe FLUSH 10 ml ASDIRECTED PRN Administration Keep Vein Open - Re-Assessments/Exams Free Text/Narrative Re-Assessment/Exam: He was established labs are drawn. 1 L LR wide open. Benadryl 25 mg IV push for nausea. Ketorolac 30 mg IV push for pain. Urinalysis returns which is grossly positive with nitrite positive small amount of leukocytes, U WBCs [id number] with quite a bit of protein as well. Urine culture pending. Ceftriaxone gram IV piggyback. Laboratory evaluation with a mild white blood cell count of 14.7 with a normal differential. CMP with a potassium of 3.4, creatinine 1.05 with a BUN of 18. Mild elevation of her T bili at 1.1 with normal AST ALT and alkaline phosphatase. Lactic acid is normal at 1.6. CRP is mildly elevated at 1.7. Urine drug screen positive for amphetamines methamphetamines MDMA and THC Explained to the patient that she clearly has a pyelonephritis by exam. Her pain and her nausea is much improved following the above therapy. She is able to tolerate oral fluids in the emergency department. We will give her a second liter of fluid to make sure she is well-hydrated prior to discharge. We will start her on cefdinir as well as Zofran. She develops fever that is not controlled with Tylenol or ibuprofen nausea that is uncontrolled with Zofran or she is unable to keep her medicines down she needs to recheck in the emergency department. Discharge directions as below are explained to the patient she was comfortable this plan and her questions are answered. Departure - Departure Time of Disposition: 21:17 Disposition: Home, Self-Care 01 Clinical Impression: Pyelonephritis, Methamphetamine abuse, Acute kidney injury - Discharge Information Instructions: Pyelonephritis, Adult, [id number], Pain Medicine Instructions, [id number] Referrals: Surinder Luu [Primary Care Provider] - Forms: ED Department Discharge Additional Instructions: Tylenol and/or ibuprofen as needed for pain fever discomfort. Drink plenty of fluids over the next couple of days especially electrolyte containing material such as Gatorade and/or Powerade. If you are not urinating every 2-3 hours you are not drinking enough fluids. Small frequent meals. Cefdinir 1 tablet by mouth twice a day for the next 10 days. Prescription given to you. Finish this no matter what. #20 Zofran 1 tablet by mouth every 6 hours as needed for nausea vomiting. Prescri ption given to you. #12 Diflucan 150 mg 1 tab p.o. as needed vaginal yeast infection repeat in 3 days. #2. Return to the emergency department if new or worsening symptoms. Especially if uncontrolled fever there with the above therapy recurrent nausea vomiting unable to keep fluids down or antibiotics. Follow-up primary care provider the next 4 to 6 days if not improving sooner if worse. Sepsis Event Note (ED) - Focused Exam Vital Signs: Vital Signs Temp Pulse Resp BP Pulse Ox 06/10/21 20:03 98.4 F 116 H 16 152/102 H 98 - My Orders Last 24 Hours: My Active Orders 06/10/21 19:55 CHLAMYDIA AND GONORRHEA BY TMA Stat CULTURE URINE [RM] Stat 06/10/21 20:06 Peripheral IV Insertion Adult [OM.PC] Stat - Assessment/Plan Last 24 Hours: My Active Orders 06/10/21 19:55 CHLAMYDIA AND GONORRHEA BY TMA Stat CULTURE URINE [RM] Stat 06/10/21 20:06 Peripheral IV Insertion Adult [OM.PC] Stat
[2021-06-10 20:38] LABS: AMPHETAMINES,URINE POSITIVE (NEGATIVE); BARBITURATES,URINE NEGATIVE (NEGATIVE); BENZODIAZEPINE,URINE NEGATIVE (NEGATIVE); MDMA (ECSTASY), URINE POSITIVE (NEGATIVE); METHADONE,URINE NEGATIVE (NEGATIVE); METHAMPHETAMINES,URINE POSITIVE (NEGATIVE); OPIATES,URINE NEGATIVE (NEGATIVE); OXYCODONE,URINE NEGATIVE (NEGATIVE); PHENCYCLIDINE,URINE NEGATIVE (NEGATIVE); TCA,URINE NEGATIVE (NEGATIVE)
[2021-06-10 20:39] LABS: ANION GAP 12.4 mEq/L (7-13); CHLORIDE,CL 103 mmol/L (98-107); SODIUM,NA 141 mmol/L (136-145)
[2021-06-10 21:34] VITALS: BP 152/102; PULSE 116
[2021-06-14 14:47] LABS: C.TRACHOMATIS BY TMA Negative (Negative); N.GONORRHOEAE BY TMA Negative (Negative)
== END 2021-06-10 23:06 | disposition home or self-care (01) ==
LOC: DL.ED 19:48
DX: N12 Tubulo-interstitial nephritis, not specified as acute or chronic (principal); N17.9 Acute kidney failure, unspecified; F15.10 Other stimulant abuse, uncomplicated; Z72.0 Tobacco use
CPT/HCPCS: 36415; 80053; 80305-QW; 81001; 81025; 83605; 85025; 86140; 87086; 87088; 87186; 87491; 87591; 96365; 96375; 99284-25; J0696; J1200; J1885; J7120

== ENCOUNTER 2023-06-03 05:02 | Emergency (ER) | payer SELFPAY ==
[2023-06-03 06:01] VITALS: BP 153/102; PULSE 62
[2023-06-03 06:24] LABS: BASOPHILS PERCENT AUTO 0.5 % (0.0-1.0); EOSINOPHILS PERCENT AUTO 3.4 % (1.0-3.0); HEMATOCRIT 40.9 % (37.0-47.0); HEMOGLOBIN 13.5 g/dL (12.0-16.0); LYMPHOCYTES PERCENT AUTO 29.9 % (20.5-50.1); MEAN CORPUSCULAR VOLUME 87.8 fL (80-100); MONOCYTES PERCENT AUTO 9.7 % (2-8); NEUTROPHILS PERCENT AUTO 56.5 % (42.2-75.2); PLATELET COUNT,PLT 325 10^3/uL (150-450); RED BLOOD CELL COUNT 4.66 10^6/uL (4.2-5.4); WHITE BLOOD CELL COUNT,WBC 8.8 10^3/uL (5.0-10.0)
[2023-06-03 06:42] LABS: ALBUMIN 3.1 g/dL (3.4-5.0); ANION GAP 12.8 mEq/L (7-13); BILIRUBIN TOTAL 0.2 mg/dL (0.2-1.0); BUN/CREATININE RATIO 9.9 (No establ ref range); CALCIUM 8.6 mg/dL (8.5-10.1); CREATININE 0.81 mg/dL (0.55-1.02); EST CRCL DRUG DOSING (CG) 107.1 mL/min; POTASSIUM,K 3.8 mmol/L (3.5-5.1); PROTEIN TOTAL,TP 6.6 g/dL (6.4-8.2)
[2023-06-03 06:49] LABS: A/G RATIO 0.89
[2023-06-03 07:04] LABS: APPEARANCE,URINE SLIGHTLY CLOUDY (CLEAR); BILIRUBIN,URINE NEGATIVE (NEGATIVE); COLOR,URINE YELLOW (YELLOW); GLUCOSE,URINE NEGATIVE (NEGATIVE); KETONES,URINE NEGATIVE (NEGATIVE); LEUKOCYTE ESTERASE,URINE TRACE (NEGATIVE); NITRITE,URINE POSITIVE (NEGATIVE); OCCULT BLOOD,URINE NEGATIVE (NEGATIVE); PROTEIN,URINE NEGATIVE (NEGATIVE); UROBILINOGEN,URINE 0.2 mg/dL (0.2-1.0)
[2023-06-03] MEDS ORDERED: cefTRIAXone 1 GM, Lidocaine 1% 2.1 ML IM ONE ×2 (07:19)
[2023-06-03] MEDS ORDERED: cefTRIAXone 1 GM Vial IVPUSH ONE (07:24)
[2023-06-03 07:28] LABS: BACTERIA,URINE MANY /HPF (0-FEW/HPF); EPITHELIAL CELLS,URINE FEW /HPF (NOT SEEN); MUCUS,URINE FEW /LPF (NOT SEEN); RBC,URINE 0-5 /HPF (0-5); WBC,URINE 20-30 /HPF (0-5/HPF)
== END 2023-06-03 08:01 | disposition home or self-care (01) ==
LOC: DL.ED 05:02
DX: N30.01 Acute cystitis with hematuria (principal); J06.9 Acute upper respiratory infection, unspecified; B97.89 Other viral agents as the cause of diseases classified elsewhere; I10 Essential (primary) hypertension; Z72.0 Tobacco use; Z20.822 Contact with and (suspected) exposure to COVID-19
CPT/HCPCS: 36415; 80053; 81001; 81025; 85025; 87086; 87088; 87186; 87635; 87804; 96374; 99284; J0696; U0002

== ENCOUNTER 2024-02-28 01:40 | Emergency (ER) | payer MEDICAID ==
[2024-02-28 02:39] VITALS: BP 146/91; PULSE 77
[2024-02-28 02:49] LABS: BASOPHILS PERCENT AUTO 0.4 % (0.0-1.0); EOSINOPHILS PERCENT AUTO 2.9 % (1.0-3.0); HEMATOCRIT 40.5 % (37.0-47.0); HEMOGLOBIN 13.3 g/dL (12.0-16.0); LYMPHOCYTES PERCENT AUTO 24.4 % (20.5-50.1); MEAN CORPUSCULAR HEMOGLOBIN 28.7 pg (27.0-34.0); MEAN CORPUSCULAR HGB CONC 32.8 g/dL (33.0-35.0); MEAN CORPUSCULAR VOLUME 87.5 fL (80-100); MONOCYTES PERCENT AUTO 5.3 % (2-8); PLATELET COUNT,PLT 317 10^3/uL (150-450); RED BLOOD CELL COUNT 4.63 10^6/uL (4.2-5.4)
[2024-02-28] MEDS: Sodium Chloride 0.9% 1,000 ML IV ONE (02:49)
[2024-02-28 03:09] LABS: ALBUMIN 3.6 g/dL (3.4-5.0); ANION GAP 11.1 mEq/L (7-13); BILIRUBIN TOTAL 0.7 mg/dL (0.2-1.0); BUN/CREATININE RATIO 11.5 (No establ ref range); CREATININE 0.78 mg/dL (0.55-1.02); EST CRCL DRUG DOSING (CG) 111.22 mL/min; POTASSIUM,K 4.1 mmol/L (3.5-5.1); PROTEIN TOTAL,TP 7.3 g/dL (6.4-8.2)
== END 2024-02-28 03:42 | disposition home or self-care (01) ==
LOC: DL.ED 01:40
DX: O03.9 Complete or unspecified spontaneous abortion without complication (principal); I10 Essential (primary) hypertension
CPT/HCPCS: 36415; 76817; 80053; 84702; 85025; 86850; 86900; 86901; 87210; 96360; 99284; J7030; 87491; 87591

== ENCOUNTER 2024-05-01 07:53 | Emergency (ER) | payer MEDICAID ==
[2024-05-01 08:10] VITALS: BP 158/88; PULSE 93
[2024-05-01 08:20] LABS: APPEARANCE,URINE CLOUDY (CLEAR); BILIRUBIN,URINE NEGATIVE (NEGATIVE); COLOR,URINE YELLOW (YELLOW); GLUCOSE,URINE NEGATIVE (NEGATIVE); KETONES,URINE NEGATIVE (NEGATIVE); LEUKOCYTE ESTERASE,URINE MODERATE (NEGATIVE); NITRITE,URINE POSITIVE (NEGATIVE); OCCULT BLOOD,URINE SMALL (NEGATIVE); PH,URINE 6.5 (5.0-9.0); PROTEIN,URINE 30 (NEGATIVE); UROBILINOGEN,URINE 0.2 mg/dL (0.2-1.0)
[2024-05-01 08:23] LABS: BASOPHILS PERCENT AUTO 0.1 % (0.0-1.0); HEMATOCRIT 40.8 % (37.0-47.0); HEMOGLOBIN 13.3 g/dL (12.0-16.0); LYMPHOCYTES PERCENT AUTO 14.9 % (20.5-50.1); MEAN CORPUSCULAR HEMOGLOBIN 28.5 pg (27.0-34.0); MEAN CORPUSCULAR HGB CONC 32.6 g/dL (33.0-35.0); MEAN CORPUSCULAR VOLUME 87.4 fL (80-100); MONOCYTES PERCENT AUTO 7.7 % (2-8); NEUTROPHILS PERCENT AUTO 76.3 % (42.2-75.2); PLATELET COUNT,PLT 368 10^3/uL (150-450); RED BLOOD CELL COUNT 4.67 10^6/uL (4.2-5.4); WHITE BLOOD CELL COUNT,WBC 13.5 10^3/uL (5.0-10.0)
[2024-05-01] MEDS: Sodium Chloride 0.9% 10 ML Syringe FLUSH PRN (08:30)
[2024-05-01] MEDS: Sodium Chloride 0.9% 1,000 ML IV ONE (08:30)
[2024-05-01] MEDS: Ondansetron 4 MG/2 ML SDV IVPUSH ONE (08:30)
[2024-05-01 08:32] LABS: AMPHETAMINES,URINE POSITIVE (NEGATIVE); BARBITURATES,URINE NEGATIVE (NEGATIVE); BENZODIAZEPINE,URINE NEGATIVE (NEGATIVE); MDMA (ECSTASY), URINE NEGATIVE (NEGATIVE); METHADONE,URINE NEGATIVE (NEGATIVE); METHAMPHETAMINES,URINE POSITIVE (NEGATIVE); OPIATES,URINE NEGATIVE (NEGATIVE); OXYCODONE,URINE NEGATIVE (NEGATIVE); PHENCYCLIDINE,URINE NEGATIVE (NEGATIVE); TCA,URINE NEGATIVE (NEGATIVE)
[2024-05-01 08:33] LABS: ALANINE AMINOTRANSFERASE,ALT 17 U/L (14-59); ALBUMIN 3.2 g/dL (3.4-5.0); ALKALINE PHOSPHATASE 102 U/L (46-116); AMYLASE 20 U/L (25-115); ANION GAP 14.8 mEq/L (7-13); ASPARTATE AMNIOTRANSFERASE,AST 10 U/L (15-37); BILIRUBIN TOTAL 0.8 mg/dL (0.2-1.0); BLOOD UREA NITROGEN,BUN 8 mg/dL (7-18); CALCIUM 9.1 mg/dL (8.5-10.1); CARBON DIOXIDE,CO2 26 mmol/L (21-32); CHLORIDE,CL 100 mmol/L (98-107); CREATININE 0.89 mg/dL (0.55-1.02); EST CRCL DRUG DOSING (CG) 97.47 mL/min; GLUCOSE RANDOM 105 mg/dL (70-99); LIPASE 15 U/L (16-77); MAGNESIUM 1.7 mg/dL (1.8-2.4); POTASSIUM,K 3.8 mmol/L (3.5-5.1); PROTEIN TOTAL,TP 7.1 g/dL (6.4-8.2); SODIUM,NA 137 mmol/L (136-145)
[2024-05-01 08:36] LABS: A/G RATIO 0.82; ESTIMATED GFR 92 mL/min (>=60)
[2024-05-01 08:36] LABS: AMORPHOUS SEDIMENT,URINE FEW /HPF (NOT SEEN); BACTERIA,URINE MANY /HPF (0-FEW/HPF); EPITHELIAL CELLS,URINE FEW /HPF (NOT SEEN); MUCUS,URINE MODERATE /LPF (NOT SEEN); RBC,URINE 0-5 /HPF (0-5); WBC,URINE SEMI-PACKED /HPF (0-5/HPF)
[2024-05-01 08:37] LABS: ETHANOL BLOOD MEDICAL < 3 mg/dL (0)
[2024-05-01] MEDS: cefTRIAXone 2 GM Vial IVPUSH ONE (09:15)
[2024-05-01] MEDS: Magnesium Sulfate/Water 2 GM in Premix Bag 1 BAG IV ONE (09:29)
[2024-05-01] MEDS: Ketorolac 30 MG/ML SDV IVPUSH ONE (10:07)
== END 2024-05-01 10:10 | disposition home or self-care (01) ==
LOC: DL.ED 07:53
DX: N30.00 Acute cystitis without hematuria (principal); N12 Tubulo-interstitial nephritis, not specified as acute or chronic; I10 Essential (primary) hypertension; F17.200 Nicotine dependence, unspecified, uncomplicated; Z90.49 Acquired absence of other specified parts of digestive tract
CPT/HCPCS: 36415; 80053; 80305; 80307; 81001; 81025; 82150; 83690; 83735; 85025; 87086; 87088; 87186; 87491; 87563; 87591; 93005; 96365; 96375; 99284; J0696; J1885; J2405; J3475; J7030; J3490

== ENCOUNTER 2025-07-21 17:41 | Emergency (ER) | payer MEDICAID ==
[2025-07-21 17:55] VITALS: BP 153/111; PULSE 129
== END 2025-07-21 18:04 | disposition home or self-care (01) ==
LOC: DL.ED 17:41
DX: I10 Essential (primary) hypertension (principal)
CPT/HCPCS: 99283; 99284

== ENCOUNTER 2025-07-23 13:06 | Emergency (ER) | payer MEDICAID ==
[2025-07-23] MEDS: Ketorolac 30 MG/ML SDV IVPUSH ONE (13:44)
[2025-07-23] MEDS: diphenhydrAMINE 50 MG/ML SDV IVPUSH ONE (13:44)
[2025-07-23] MEDS: Lactated Ringers 1,000 ML IV ONE (13:44)
[2025-07-23 15:01] VITALS: BP 124/77; PULSE 93
== END 2025-07-23 15:13 | disposition home or self-care (01) ==
LOC: DL.ED 13:06
DX: R51.9 Headache, unspecified (principal); I10 Essential (primary) hypertension; Z79.899 Other long term (current) drug therapy
CPT/HCPCS: 96361; 96374; 96375; 99283-25; J1200; J1885; J2765; J7120